=== PATIENT | female | born 1930 | race Caucasian/White ===

== ENCOUNTER → 2017-10-07 | Outpatient (CLI) | payer MEDICARE, BC ==
--- NOTE | 2017-10-07 13:55 | Diagnostic Imaging Report ---
EXAM: DXA BONE DENSITY INDICATIONS: Osteopenia COMPARISON: Bone mineral density study 11/14/2015. FINDINGS: Proximal left femur total bone mineral density (BMD) (g/cm2):0.668 Femur T-score (standard deviation relative to young adult mean BMD): -2.2 Femur Z-score (standard deviation relative to age-matched control group):0.1 Proximal left femur neck bone mineral density (BMD) (g/cm2):0.612 Femur T-score (standard deviation relative to young adult mean BMD): -2.1 Femur Z-score (standard deviation relative to age-matched control group):0.4 Lumbar bone mineral density (BMD) (g/cm2):0.802 Lumbar T-score (standard deviation relative to young adult mean BMD): -2.2 Lumbar Z-score (standard deviation relative to age-matched control group):0.6 Change since prior exam (%): Femur:+1.6%. Spine:+3.1%. CONCLUSION: 1. Bone mineral density in the left femur is classified as osteopenia. Fracture risk is increased. 2. Bone mineral density in the spine is classified as osteopenia. Fracture risk is increased. World Health Organization Classification: *The Z-score is provided for informational purposes. The T-score is preferable for clinical decisions. When comparing exams, a change of >4% is considered statistically significant. SUGGESTED RECOMMENDATIONS: Normal \T\ Osteopenia:Consideration should be given to use of calcium supplementation, daily multiple vitamins and adequate exercise, as preventive measures against osteoporosis, if clinically indicated. Osteoporosis \T\ Severe Osteoporosis:In addition to the above, consideration should be given to medical therapy against osteoporosis, if clinically indicated. Miquel Stanford M.D. Dictated by: Miquel Stanford M.D. on 10/07/2017 at 14:00 Electronically approved by: Miquel Stanford M.D. on 10/07/2017 at 14:00
== END ==
LOC: DX 08:57
PROVIDERS: ATTEND Emergency Medicine
DX: M81.0 Age-related osteoporosis without current pathological fracture (principal)
CPT/HCPCS: 77080